=== PATIENT | female | born 1990 | race Asian ===

== ENCOUNTER → 2016-09-13 | Outpatient (CLI) | payer OTHER ==
[2016-09-13 16:26] LABS: URINE APPEARANCE CLEAR (CLEAR); URINE BILIRUBIN NEG (NEG); URINE COLOR YELLOW; URINE NITRITE NEG (NEG); URINE SPECIFIC GRAVITY 1.021 (1.000-1.030); UROBILINOGEN NEG (NEG)
[2016-09-13 16:30] LABS: MANUAL MICROSCOPIC REQUIRED? NO; REVIEW REQ? NO
== END | disposition home or self-care (01) ==
LOC: C.LABSPEC 15:55
PROVIDERS: ATTEND Obstetrics & Gynecology
DX: Z34.01 Encounter for supervision of normal first pregnancy, first trimester (principal)

== ENCOUNTER → 2016-09-20 | Outpatient (CLI) | payer OTHER ==
[2016-09-22 16:23] LABS: CHLAMYDIA TRACH RNA*** NOT DETECTED (NOT DETECTED); GC (NEIS GONORRHOEAE)RNA** NOT DETECTED (NOT DETECTED)
== END | disposition home or self-care (01) ==
LOC: C.LABSPEC 14:27
PROVIDERS: ATTEND Obstetrics & Gynecology
DX: Z34.01 Encounter for supervision of normal first pregnancy, first trimester (principal)

== ENCOUNTER → 2016-09-20 | Outpatient (CLI) | payer OTHER | END | disposition home or self-care (01) | LOC: C.PAPS 14:02 | PROVIDERS: ATTEND Obstetrics & Gynecology | DX: Z12.4 Encounter for screening for malignant neoplasm of cervix (principal) ==

== ENCOUNTER → 2016-09-20 | Outpatient (CLI) | payer OTHER ==
[2016-09-20 13:28] LABS: BASO % 0.2 %; BASO ABS # 0.02 K/uL (0-0.2); COMPLETE YES; EOS % 1.1 %; HEMATOCRIT 38.2 % (37-47); IG% 0.2 %; LYMPH % 28.8 %; LYMPH ABS # 2.98 K/uL (1.2-3.4); MEAN CELL VOLUME 84.7 fL (80-100); MEAN CORPUSCULAR HEMOGLOBIN 27.3 pg (25-34); MEAN CORPUSCULAR HGB CONC 32.2 g/dl (32-36); MONO % 7.4 %; NEUT % 62.3 %; PLATELET COUNT 384 K/uL (130-400); RED BLOOD COUNT 4.51 M/uL (4.2-5.4); WHITE BLOOD COUNT 10.33 K/uL (4.8-10.8)
== END | disposition home or self-care (01) ==
LOC: C.LAB1850 12:14
PROVIDERS: ATTEND Obstetrics & Gynecology
DX: Z34.01 Encounter for supervision of normal first pregnancy, first trimester (principal)

== ENCOUNTER → 2016-09-27 | Outpatient (CLI) | payer OTHER | END | disposition home or self-care (01) | LOC: C.LAB1850 12:17 | PROVIDERS: ATTEND Obstetrics & Gynecology | DX: O02.1 Missed abortion (principal); Z3A.00 Weeks of gestation of pregnancy not specified ==

== ENCOUNTER 2016-09-28 10:50 | Day surgery (SDC) | payer OTHER ==
[~2016-09-28] VITALS: Ht 162.6 cm; Wt 60.5 kg
[~2016-09-28 10:50] MED LIST: DEXAMETHASONE SOD INJ 4 MG/ML VIAL ONE; DOXYCYCLINE HYCLATE 100 MG CAP PO SCH; FENTANYL CITRATE INJ 50 MCG/1 ML 2 ML VIAL ONE; LACTATED RINGER'S 1000ML 1,000 ML IV SCH; LIDOCAINE HCL 2% 2 ML VIAL (20MG/ML) ONE; METHYLERGONOVINE MALEATE 0.2 MG/ML AMP ONE; MIDAZOLAM HCL 1 MG/ML 2ML VIAL ONE; ONDANSETRON INJ 2 MG/ML 2 ML VIAL ONE; PROPOFOL IV EMULSION 10 MG/ML 20 ML VIAL IV ONE
[2016-09-28 11:09] VITALS: BP 97/52; PULSE 62; TEMP 37.2; O2SAT 100; Ht 162.6 cm; Wt 60.5 kg
--- NOTE | 2016-09-28 11:37 | History & Physical Bridge Note ---
H&P Re-Evaluation Bridge Note: I have examined the patient, reviewed the History & Physical and in the interval since the performance of the History & Physical I have noted the following changes of clinical significance: No changes noted
[2016-09-28] MEDS ORDERED: KETOROLAC TROMETHAMINE 30 MG/ML VIAL ONE (12:09)
[2016-09-28] MEDS ORDERED: SODIUM CHLORIDE 0.9% 1000ML 1,000 ML IV SCH (12:47)
--- NOTE | 2016-09-28 12:47 | [facility] Post Operative Brief Note ---
Immediate Operative Summary Operative Date Sep 28, 2016. Pre-Operative Diagnosis Missed Post-Operative Diagnosis Missed Procedure(s) Performed Dilation and Evacuation Surgeon Mya Sole Ruffer Surgeon(s) none Estimated Blood Loss 50CC Findings friable cervix, wide ectropion. cervix stenotic but yields to curved hemostat. uterus is top normal size , no adnexal masses Fluids (cc crystalloids) 1800 Specimens A: Products of conception Drains none Anesthesia general Complication(s) None Disposition Recovery Room / PACU
--- NOTE | 2016-09-28 12:50 | Discharge Instructions ---
Discharge Instructions Date of Service Sep 28, 2016. Visit Reason for Visit: Missed Discharge Discharge Diagnosis / Problem: recovery from D&E Discharge Goals Goal(s): Therapeutic intervention Activity Recommendations Activity Limitations: per Instructions/Follow-up section Anesthesia . Post Anesthesia Instructions: If you have had General Anesthesia or IV Sedation: * Do not drive today. * Resume driving when surgeon permits. * Do not make important decisions or sign legal documents today. * Call surgeon for: 1. Temperature elevations greater than 101 degrees F. 2. Uncontrollable pain. 3. Excessive bleeding. 4. Persistent nausea and vomiting. 5. Medication intolerance (nausea, vomiting or rash). * For nausea and vomiting use only clear liquids such as: tea, soda, bouillon until nausea subsides, then gradually increase diet as tolerated. * If you have any concerns or questions, call your surgeon's office. If physician is unavailable and it is an emergency, call 911 or go to the nearest emergency room. . Instructions / Follow-Up Instructions / Follow-Up ACTIVITY RECOMMENDATIONS: * Avoid tampons, douching, hot tubs, pools, and intercourse until bleeding has stopped. * May shower as usual. * No strenuous activity for 24-48 hours. After 24-48 hours, you may do anything you feel like doing (driving and sports are okay). SPECIAL CARE INSTRUCTIONS: Special Diet: * Mild nausea may occur in the immediate post-operative period. * Take clear liquids such as tea, cola or bouillon until all nausea has subsided; you may then resume your normal diet. Special Care: * Light bleeding and vaginal spotting can last from a few days to 3-4 weeks. Call your doctor if bleeding becomes heavier than the heaviest part of your period. * Check your temperature twice a day for one week. If it goes above 100.4 degrees Fahrenheit (38.0 Celsius), notify your doctor. * Call your doctor's office for an appointment for 6 weeks after your surgery. FOLLOW-UP VISIT: Call your doctor's office for an appointment for 6 weeks after your surgery. Diet Recommendations Recommended Home Diet: resume previous diet Procedures Procedures Performed: Dilation and Evacuation Pending Studies Studies pending at discharge: no Medical Emergencies . Who to Call and When: Medical Emergencies: If at any time you feel your situation is an emergency, please call 911 immediately. . Non-Emergent Contact Non-Emergency issues call your: Transcripter . . "Provider Documentation" section prepared by Maren Boles. .
--- NOTE | 2016-09-28 12:55 | Anesthesiology Progress Note ---
Anesthesia Post Op Note Date & Time Sep 28, 2016 at 12:54 Vital Signs Pain Intensity: 0 Vital Signs Past 12 Hours Date Time Temp Pulse Resp B/P (MAP) Pulse Ox O2 Delivery O2 Flow Rate FiO2 09/28/16 12:18 36.6 68 16 113/67 100 Oxymask 10 09/28/16 11:09 37.2 62 18 97/52 (67) 100 Room Air Notes Mental Status: alert / awake / arousable, participated in evaluation Pt Amnestic to Procedure: Yes Nausea / Vomiting: adequately controlled Pain: adequately controlled Airway Patency, RR, SpO2: stable & adequate BP & HR: stable & adequate Hydration State: stable & adequate Anesthetic Complications: no major complications apparent
[2016-09-28] MEDS ORDERED: IBUPROFEN 600 MG TAB PO PRN (13:00)
[2016-09-28] MEDS ORDERED: ATROPINE SULFATE 0.1 MG/ML 5ML SYR IV PRN (13:00)
[2016-09-28] MEDS ORDERED: OXYCODONE/ACETAMINOPHEN 5-325 TAB PO PRN (13:00)
[2016-09-28] MEDS ORDERED: KETOROLAC TROMETHAMINE 30 MG/ML VIAL IV. PRN (13:00)
[2016-09-28] MEDS ORDERED: PROMETHAZINE HCL INJ 25 MG in SODIUM CHLORIDE 0.9% 50ML 50 ML IV PRN (13:00)
[2016-09-28] MEDS ORDERED: ONDANSETRON INJ 2 MG/ML 2 ML VIAL IV PRN ×2 (13:00)
[2016-09-28 13:05] VITALS: BP 107/58; PULSE 60; TEMP 36.5; O2SAT 100
--- NOTE | 2016-09-28 13:18 | OPERATIVE REPORT ---
DATE OF OPERATION: 09/28/2016 PREOPERATIVE DIAGNOSIS: Missed at 6 weeks. POSTOPERATIVE DIAGNOSIS: Same. PROCEDURE: D&E. SURGEON: Dr. Maren Saldivar. BLOOD LOSS: 50 mL. FLUIDS: 1800 mL. HISTORY OF PRESENT ILLNESS: The patient is a 26-year-old G1, P0 white female who presented for her first OB visit and was noted to have a size less than dates gestational sac with a slow heartbeat. She should have been 8 weeks and the sac was measuring 6 weeks. Followup ultrasound revealed that there was indeed a missed at 6 weeks. The patient was counseled on her options and she wishes to proceed with D&E. She understands the risks of procedure and is willing to proceed. GROSS FINDINGS: Uterus is top normal size, mobile and of normal contour. There are no adnexal masses present. Cervix has a wide ectropion and easily bleeds. Cervix is somewhat stenotic, but yields to a curved hemostat. PROCEDURE: After the patient received adequate general anesthetic, she was prepped and draped in usual sterile fashion. After bladder was emptied, a weighted speculum was placed in the vagina and the anterior lip of the cervix was grasped with a single tooth tenaculum. Cervix initially could not be dilated with the Hanks dilators. A curved hemostat was then used to dilate the os. At this point, a #13 Hanks dilator could pass easily. She was dilated to a #25 Hanks dilator. A #8 air shield was used to evacuate the contents of the uterus. Post-evacuation curettage revealed good uterine cry throughout. Bleeding at the site of the tenaculum was controlled with pressure and a Allis clamp. BLeeding on the ectropion on the cervix was also controlled with pressure, hemostasis was excellent at the end of the case. The patient tolerated the procedure well and was stable upon arrival in recovery room. I attest to the content of the Intraoperative Record and any orders documented therein. Any exceptions are noted below. NALLELYD
[2016-09-28 13:35] VITALS: BP 111/61; PULSE 62; TEMP 36.5; O2SAT 100
[2016-09-28 14:05] VITALS: BP 103/54; PULSE 68; TEMP 37; O2SAT 100
== END 2016-09-28 14:12 | disposition home or self-care (01) ==
LOC: C.ACU 10:50
PROVIDERS: ATTEND Obstetrics & Gynecology
DX: O02.1 Missed abortion (principal); Z82.49 Family history of ischemic heart disease and other diseases of the circulatory system; Z83.3 Family history of diabetes mellitus; K21.9 Gastro-esophageal reflux disease without esophagitis

== ENCOUNTER → 2016-12-05 | Outpatient (CLI) | payer OTHER | END | disposition home or self-care (01) | LOC: C.LAB1850 12:29 | PROVIDERS: ATTEND Obstetrics & Gynecology | DX: O09.299 Supervision of pregnancy with other poor reproductive or obstetric history, unspecified trimester (principal); Z3A.00 Weeks of gestation of pregnancy not specified ==

== ENCOUNTER → 2016-12-07 | Outpatient (CLI) | payer OTHER | END | disposition home or self-care (01) | LOC: C.LAB1850 14:38 | PROVIDERS: ATTEND Obstetrics & Gynecology | DX: O09.299 Supervision of pregnancy with other poor reproductive or obstetric history, unspecified trimester (principal) ==

== ENCOUNTER → 2016-12-29 | Outpatient (CLI) | payer OTHER ==
[2016-12-29 14:19] LABS: URINE APPEARANCE CLEAR (CLEAR); URINE BILIRUBIN NEG (NEG); URINE COLOR YELLOW; URINE EPITHELIAL CELL AUTO >30 /lpf (0-5); URINE NITRITE NEG (NEG); URINE PH 6.5 (4.5-7.5); UROBILINOGEN NEG (NEG)
[2016-12-29 14:27] LABS: MANUAL MICROSCOPIC REQUIRED? NO; REVIEW REQ? NO
== END | disposition home or self-care (01) ==
LOC: C.LABSPEC 12:58
PROVIDERS: ATTEND Obstetrics & Gynecology
DX: Z34.01 Encounter for supervision of normal first pregnancy, first trimester (principal)

== ENCOUNTER → 2017-01-02 | Outpatient (CLI) | payer OTHER ==
[2017-01-02 10:04] LABS: BASO % 0.2 %; BASO ABS # 0.02 K/uL (0-0.2); COMPLETE YES; EOS % 0.3 %; HEMATOCRIT 37.8 % (37-47); IG% 0.4 %; LYMPH % 17.6 %; LYMPH ABS # 1.78 K/uL (1.2-3.4); MEAN CELL VOLUME 86.7 fL (80-100); MEAN CORPUSCULAR HEMOGLOBIN 29.4 pg (25-34); MEAN CORPUSCULAR HGB CONC 33.9 g/dl (32-36); MEAN PLATELET VOLUME 10.5 fL (7.4-10.4); MONO % 4.3 %; NEUT % 77.2 %; PLATELET COUNT 314 K/uL (130-400); RED BLOOD COUNT 4.36 M/uL (4.2-5.4); WHITE BLOOD COUNT 10.09 K/uL (4.8-10.8)
[2017-01-04 01:19] LABS: CHLAMYDIA TRACH RNA*** NOT DETECTED (NOT DETECTED); GC (NEIS GONORRHOEAE)RNA** NOT DETECTED (NOT DETECTED)
== END | disposition home or self-care (01) ==
LOC: C.LAB1850 08:58
PROVIDERS: ATTEND Obstetrics & Gynecology
DX: Z34.01 Encounter for supervision of normal first pregnancy, first trimester (principal)

== ENCOUNTER → 2017-02-20 | Outpatient (CLI) | payer OTHER ==
[2017-02-20 10:52] LABS: GTGD 50 Grams
== END | disposition home or self-care (01) ==
LOC: C.LAB1850 09:37
PROVIDERS: ATTEND Obstetrics & Gynecology
DX: Z34.02 Encounter for supervision of normal first pregnancy, second trimester (principal); Z3A.00 Weeks of gestation of pregnancy not specified

== ENCOUNTER → 2017-05-15 | Outpatient (CLI) | payer OTHER ==
[2017-05-15 13:12] LABS: HEMATOCRIT 36.6 % (37-47); HEMOGLOBIN 11.3 g/dL (12.0-16.0)
== END | disposition home or self-care (01) ==
LOC: C.LAB1850 12:01
PROVIDERS: ATTEND Obstetrics & Gynecology
DX: Z34.03 Encounter for supervision of normal first pregnancy, third trimester (principal); Z3A.00 Weeks of gestation of pregnancy not specified

== ENCOUNTER → 2017-06-07 | Outpatient (CLI) | payer OTHER ==
[2017-06-07 18:04] LABS: ALBUMIN 2.9 gm/dl (3.4-5.0); ALKALINE PHOSPHATASE 148 U/L (45-117); ALT/SGPT 28 U/L (12-78); AST/SGOT 17 U/L (15-37); TOTAL PROTEIN 7.1 gm/dl (6.4-8.2)
== END | disposition home or self-care (01) ==
LOC: C.LAB1850 16:39
PROVIDERS: ATTEND Obstetrics & Gynecology
DX: L29.9 Pruritus, unspecified (principal)

== ENCOUNTER → 2017-06-14 | Outpatient (CLI) | payer OTHER | END | disposition home or self-care (01) | LOC: C.LAB 17:41 | PROVIDERS: ATTEND Obstetrics & Gynecology | DX: L29.9 Pruritus, unspecified (principal) ==

== ENCOUNTER 2017-07-04 11:33 | Outpatient (CLI) | payer OTHER | END 2017-07-04 12:11 | disposition home or self-care (01) | LOC: C.OPB 11:33 → C.LD 11:34 → C.OPB 12:11 | PROVIDERS: ATTEND Obstetrics & Gynecology | DX: O26.899 Other specified pregnancy related conditions, unspecified trimester (principal); Z3A.00 Weeks of gestation of pregnancy not specified ==

== ENCOUNTER → 2017-07-10 | Outpatient (CLI) | payer OTHER | END | disposition home or self-care (01) | LOC: C.LABSPEC 15:52 | PROVIDERS: ATTEND Obstetrics & Gynecology | DX: Z34.03 Encounter for supervision of normal first pregnancy, third trimester (principal); Z3A.00 Weeks of gestation of pregnancy not specified ==